=== PATIENT | female | born 1945 | race Caucasian/White ===

== ENCOUNTER 2022-10-29 06:32 | Day surgery (SDC) | payer MEDICARE, OTHER ==
[~2022-10-29] VITALS: Ht 160 cm; Wt 63.5 kg
[2022-10-29] VITALS (10 sets, daily range): BP systolic 105–139; BP diastolic 56–79
[2022-10-29] MEDS ORDERED: normal saline 1000ml 1,000 ML IV PRN (07:15)
[2022-10-29] MEDS ORDERED: ZOLP5TAB8 PO (07:39)
[2022-10-29] MEDS ORDERED: DICL-211 PO (07:39)
[2022-10-29] MEDS ORDERED: ROSU10TA28 PO (07:39)
[2022-10-29] MEDS ORDERED: HYDR-3973 PO (07:39)
[2022-10-29] MEDS ORDERED: TRAM50TA2 PO (07:39)
[2022-10-29] MEDS ORDERED: FLUO40CA PO (07:39)
[2022-10-29 07:41] LABS: BASOPHILS % (AUTO) 0.7 % (0-1); EOSINOPHILS # (AUTO) 0.2 X10'3 (0-0.9); EOSINOPHILS % (AUTO) 3.6 % (0-6); HEMATOCRIT 38.7 % (35.0-45.0); HEMOGLOBIN 12.8 g/dl (12.0-16.0); LYMPHOCYTES # (AUTO) 0.9 X10'3 (1.1-4.8); LYMPHOCYTES % (AUTO) 15.8 % (21-51); MEAN CORPUSCULAR HEMOGLOBIN 29.9 PG (27.0-31.0); MEAN CORPUSCULAR VOLUME 90.5 FL (78-98); MONOCYTES # (AUTO) 0.5 X10'3 (0-0.9); MONOCYTES % (AUTO) 8.1 % (2-12); NEUTROPHILS # (AUTO) 4.2 X10'3 (1.8-7.7); NEUTROPHILS % (AUTO) 71.8 % (42-75); PLATELET COUNT 225 X10'3 (140-440); RED BLOOD COUNT 4.28 X10'6 (4.20-5.60); RED CELL DISTRIBUTION WIDTH 13.6 % (11.5-14.5); WHITE BLOOD COUNT 5.9 X10'3 (4.5-11.0)
[2022-10-29] MEDS ORDERED: midazolam 1 mg/ML 2ml injection ONE ×3 (08:28→09:18)
[2022-10-29] MEDS ORDERED: fentaNYL/PF 50MCG/1 ML 2ML syringe ONE ×2 (08:28→09:12)
[2022-10-29] MEDS ORDERED: iohexol 300 MG/1 ML 50ml polymer ONE (08:29)
[2022-10-29] MEDS ORDERED: diphenhydrAMINE 50 mg/ml inj ONE (08:29)
[2022-10-29] MEDS ORDERED: cefazolin 2gm/D5W 100mL 100 ML IV STA (08:50)
--- NOTE | 2022-10-29 11:50 | NUR ---
Pt doing well, denies pain or discomfort and VSS. Report to Mohinder ARCHER.
[2022-10-30] MEDS ORDERED: cefazolin 2gm/D5W 100mL 100 ML IV ONE (05:30)
== END 2022-10-29 11:10 | disposition home or self-care (01) ==
LOC: SSTAY O 06:32
PROVIDERS: ATTEND Radiology Vascular & Interventional Radiology
DX: S32.010A Wedge compression fracture of first lumbar vertebra, initial encounter for closed fracture (principal); M80.08XA Age-related osteoporosis with current pathological fracture, vertebra(e), initial encounter for fracture; G89.29 Other chronic pain; F41.9 Anxiety disorder, unspecified; M51.36 Other intervertebral disc degeneration, lumbar region; Z98.1 Arthrodesis status; Z96.651 Presence of right artificial knee joint; Z90.710 Acquired absence of both cervix and uterus; Z98.890 Other specified postprocedural states; Z72.89 Other problems related to lifestyle; Z79.899 Other long term (current) drug therapy; Z81.8 Family history of other mental and behavioral disorders; Z82.61 Family history of arthritis; W08.XXXA Fall from other furniture, initial encounter; Y93.89 Activity, other specified; Y92.89 Other specified places as the place of occurrence of the external cause; Y99.8 Other external cause status
CPT/HCPCS: 22514; 36415; 85025; 85610; 99152; 99153; C1713; J1200; J2250; J3010; J7030; Q9967; A4620